=== PATIENT | male | born 1990 | race Caucasian/White ===

== ENCOUNTER 2017-10-31 10:29 | Emergency (ER) | payer OTHER ==
[2017-10-31 10:34] VITALS: BP 142/86; PULSE 82; TEMP 98.1; BMI 31.0
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
== END 2017-10-31 11:12 | disposition home or self-care (01) ==
LOC: JER 10:29 → JERFT 10:29
DX: S39.012A Strain of muscle, fascia and tendon of lower back, initial encounter (principal); V69.49XA Driver of heavy transport vehicle injured in collision with other motor vehicles in traffic accident, initial encounter; Y92.488 Other paved roadways as the place of occurrence of the external cause; Y99.0 Civilian activity done for income or pay; Y93.89 Activity, other specified
CPT/HCPCS: 99281-25